=== PATIENT | female | born 1995 | race Caucasian/White ===

== ENCOUNTER → 2017-06-08 | Outpatient (CLI) | payer OTHER ==
--- NOTE | 2017-06-08 14:09 | RADIOLOGY REPORT PS360 ---
FOOT-RT-3 VIEWS INDICATION: Pain in arch of foot for 2 weeks. No trauma plantar fasciitis TECHNIQUE: 3 views right foot nonweightbearing COMPARISON: None available FINDINGS: . Osseous structures intact with normal relationships. No fracture nor dislocation apparent. Visualized joint space well maintained. Adequate plantar arch Normal mineralization. . Unremarkable soft tissues. . No plantar calcaneal spur. Calcaneus unremarkable. Plantar aspect of foot unremarkable. No radiopaque foreign body IMPRESSION: Negative right foot
== END ==
LOC: RAD 13:30
DX: M72.2 Plantar fascial fibromatosis (principal)